=== PATIENT | male | born 1995 | race American Indian/Alaskan Native ===

== ENCOUNTER 2021-05-15 16:31 | Emergency (ER) | payer MEDICAID ==
[2021-05-15 17:52] VITALS: BP 134/70
--- NOTE | 2021-05-15 20:01 | Emergency Department Report ---
ED Head Trauma HPI - General Chief complaint: Head Injury Stated complaint: BRUISE ON FOREHEAD Source: patient Mode of arrival: Ambulatory Limitations: No Limitations - History of Present Illness Initial comments: Patient is a 25-year-old -[place] male with no past medical history presents to the ED with complaint of persistent frontal midline scalp traumatic bruising after his slipped off his bed and fell down landing on his face about a month ago. Patient states that the bruising has been persistent and would like to be evaluated and possibly treated for it. Patient states that he was asleep on his bed when he rolled onto the floor accidentally and landed on his face about 1 month ago. Patient denies headache, dizziness, syncope, seizures, loss of consciousness, nausea and vomiting, nosebleed, change in vision, chest pain or shortness of breath and neck pain. MD Complaint: head injury, other (Frontal scalp bruises) -: Sudden, month(s) (1) Mechanism of Injury: mechanical fall Location: frontal Loss of Consciousness: no Previous Trauma to this Area: No Place: home Radiation: none Severity: mild Severity scale (0 -10): 0 Consistency: constant Provoking factors: none known Other Injuries: none Associated Symptoms: denies other symptoms. denies: confusion, amnesia, repetitive questioning, vision changes, nausea, vomiting, vertigo, syncope, numbness, weakness, tingling, neck pain - Related Data Allergies/Adverse reactions: Allergies Allergy/AdvReac Type Severity Reaction Status Date / Time No Known Allergies Allergy Unverified 05/15/21 17:49 ED Review of Systems ROS: Stated complaint: BRUISE ON FOREHEAD Other details as noted in HPI Constitutional: denies: chills, fever Eyes: denies: eye pain, eye discharge, vision change ENT: other (Frontal midline small painless bruising). denies: ear pain, throat pain Respiratory: denies: cough, shortness of breath, wheezing Cardiovascular: denies: chest pain, palpitations Endocrine: no symptoms reported Gastrointestinal: denies: abdominal pain, nausea, diarrhea Genitourinary: denies: urgency, dysuria Musculoskeletal: denies: back pain, joint swelling, arthralgia Skin: change in color (Midline frontal scalp painless bruising). denies: rash, lesions Neurological: denies: headache, weakness, paresthesias Psychiatric: denies: anxiety, depression Hematological/Lymphatic: denies: easy bleeding, easy bruising ED Past Medical Hx - Past Medical History Previous Medical History?: No - Surgical History Past Surgical History?: No ED Physical Exam - General Limitations: No Limitations General appearance: alert, in no apparent distress - Head Head exam: Present: other (Gross superficial ecchymotic <1 cm nontender area on midline frontal scalp) - Eye Eye exam: Present: normal appearance, PERRL, EOMI Pupils: Present: normal accommodation - ENT ENT exam: Present: normal exam, normal orophraynx, mucous membranes moist, TM's normal bilaterally, normal external ear exam - Neck Neck exam: Present: normal inspection, full ROM. Absent: tenderness - Respiratory Respiratory exam: Present: normal lung sounds bilaterally. Absent: respiratory distress, wheezes, rales, rhonchi, chest wall tenderness, accessory muscle use, decreased breath sounds - Cardiovascular Cardiovascular Exam: Present: regular rate, normal rhythm, normal heart sounds. Absent: systolic murmur, diastolic murmur, rubs, gallop - GI/Abdominal GI/Abdominal exam: Present: soft, normal bowel sounds. Absent: tenderness, guarding, hyperactive bowel sounds, hypoactive bowel sounds, mass - Extremities Exam Extremities exam: Present: normal inspection, full ROM, normal capillary refill - Back Exam Back exam: Present: normal inspection, full ROM. Absent: tenderness, CVA tenderness (R), CVA tenderness (L), muscle spasm, paraspinal tenderness - Neurological Exam Neurological exam: Present: alert, oriented X3, CN II-XII intact, normal gait, reflexes normal - Psychiatric Psychiatric exam: Present: normal affect, normal mood - Skin Skin exam: Present: warm, dry, intact, normal color, ecchymosis (Gross superficial ecchymotic <1 cm area on midline frontal scalp). Absent: rash ED Course Vital Signs 05/15/21 17:50 Temperature 98.8 F Pulse Rate 62 Respiratory 18 Rate Blood Pressure 134/70 O2 Sat by Pulse 98 Oximetry - Medical Decision Making This is a 25-year-old -[place] male with no past medical history presents to the ED with complaint of persistent frontal midline scalp traumatic bruising after his slipped off his bed and fell down landing on his face about a month ago. Patient states that the bruising has been persistent and would like to be evaluated and possibly treated for it. Patient states that he was asleep on his bed when he rolled onto the floor accidentally and landed on his face about 1 month ago. In the ED, patient is alert and oriented x3 and is not in any distress with normal vital signs. Patient was discharged home and advised that the ecchymotic area on his face would resolve on its own and therefore does not need any medications. Patient is hemodynamically stable and has not had any neurological symptoms and therefore does not warrant any head CT scan without contrast studies. Patient was advised to follow-up with his primary care physician in 5 to 7 days for reevaluation or return to the ED immediately if his symptoms get worse. - Differential Diagnosis Ecchymosis; contusion; - Core Measures AMI Core Measures Followed: No Measure Exclusions: not indicated - NEXUS Criteria Focal neurological deficit present: No Midline spinal tenderness present: No Altered level of consciousness: No Intoxication present: No Distracting injury present: No NEXUS results: C-Spine can be cleared clinically by these results. Imaging is not required. Critical care attestation.: If time is entered above; I have spent that time in minutes in the direct care of this critically ill patient, excluding procedure time. ED Disposition Clinical Impression: Contusion of scalp Qualifiers: Encounter type: initial encounter Qualified Code(s): S00.03XA - Contusion of scalp, initial encounter Traumatic ecchymosis of face Qualifiers: Encounter type: initial encounter Qualified Code(s): S00.83XA - Contusion of other part of head, initial encounter Disposition: DC-01 TO HOME OR SELFCARE Is pt being admited?: No Does the pt Need Aspirin: No Condition: Stable Instructions: Facial or Scalp Contusion, [id number] Additional Instructions: The facial ecchymoses or bruises is due to traumatic fall, and the body is able to dissolve the bruised section, it will just take time. Therefore follow-up with your primary care physician in 7 to 10 days for reevaluation. Return to the ED immediately if symptoms get worse. Referrals: [facility] [Provider Group] - 7-10 days Print Language: FRENCH
== END 2021-05-15 20:30 | disposition home or self-care (01) ==
LOC: ED 16:31
DX: S00.03XA Contusion of scalp, initial encounter (principal); S00.83XA Contusion of other part of head, initial encounter; W06.XXXA Fall from bed, initial encounter; Y93.89 Activity, other specified; Y92.89 Other specified places as the place of occurrence of the external cause; Y99.8 Other external cause status
CPT/HCPCS: 99282

== ENCOUNTER 2021-06-07 18:53 | Emergency (ER) | payer MEDICAID | END 2021-06-07 19:30 | LOC: ED 18:53 | DX: S00.83XA Contusion of other part of head, initial encounter (principal); Z53.21 Procedure and treatment not carried out due to patient leaving prior to being seen by health care provider; X58.XXXA Exposure to other specified factors, initial encounter; Y93.89 Activity, other specified; Y92.89 Other specified places as the place of occurrence of the external cause; Y99.8 Other external cause status ==